=== PATIENT | female | born 1990 | race Two or more races ===

== ENCOUNTER 2023-05-02 10:58 | Emergency (ER) | payer OTHER ==
[~2023-05-02] VITALS: Ht 165.1 cm; Wt 54.6 kg
[2023-05-02 12:06] VITALS: BP 100/61; PULSE 78; RESP 20; TEMP 97.7; O2SAT 99
[2023-05-02] MEDS ORDERED: TRIA0.02 TOP (12:54)
[2023-05-02] MEDS ORDERED: CEPH500C PO (12:54)
[2023-05-02] MEDS ORDERED: METH4PAK PO (12:54)
[2023-05-02] MEDS: methylPREDNISolone SOD SUCC 125 MG/2 ML VL IM ONE (13:27)
[2023-05-02] MEDS: EPINEPHrine HCL 1 MG/1 ML AMP SC ONE (13:27)
== END 2023-05-02 13:38 | disposition home or self-care (01) ==
LOC: ER 10:58
DX: T78.49XA Other allergy, initial encounter (principal); L08.89 Other specified local infections of the skin and subcutaneous tissue; Z79.899 Other long term (current) drug therapy; X58.XXXA Exposure to other specified factors, initial encounter
CPT/HCPCS: 96372; 99284; J0171; J2930